=== PATIENT | female | born 1990 | race Two or more races ===

== ENCOUNTER 2025-01-06 08:56 | Inpatient (IN) | payer MEDICAID ==
[~2025-01-06] VITALS: Ht 172.7 cm; Wt 95.5 kg
[~2025-01-06 08:56] MED LIST: HYDR50TA69 PO; QUET200T45 PO; TRAZ-228 PO
[2025-01-06] MEDS: PREGABALIN CAPSULE 75 MG CAP ONE (10:50)
[2025-01-06] MEDS: CELECOXIB 100 MG CAP ONE (10:50)
[2025-01-06] MEDS: ACETAMINOPHEN IV 100 ML IV ONE (10:50)
[2025-01-06] MEDS ORDERED: KETOROLAC TROMETH 30 MG/ML 1ML VIAL ONE ×2 (11:47→14:36)
[2025-01-06] MEDS: ACETAMINOPHEN IV 1000 MG/100ML (10MG/ML) IV ONE (12:05)
[2025-01-06] MEDS: CELECOXIB 100 MG CAP PO ONE (12:05)
[2025-01-06] MEDS: PREGABALIN CAPSULE 75 MG CAP PO ONE (12:05)
[2025-01-06] MEDS: ceFAZolin 1GM/50ML 100 ML IV ONE (12:30)
[2025-01-06] MEDS ORDERED: MIDAZOLAM HCL 2MG/2ML 2ml VIAL (1mg/ml) ONE (12:30)
[2025-01-06] MEDS ORDERED: PROPOFOL 10 MG/ML 20 ML IV ONE (12:31)
[2025-01-06] MEDS ORDERED: fentaNYL CITRATE 100 MCG/2 ML VL ONE ×2 (12:32→14:52)
[2025-01-06] MEDS: CEFEPIME 1GM/ 50ML 50 ML IV ONE (12:40)
[2025-01-06] MEDS ORDERED: diphenhdrAMINE HCL 50 MG/1 ML VL ONE (12:45)
[2025-01-06] MEDS ORDERED: METOCLOPRAMIDE HCL 5MG/ml INJ 2ml VIAL ONE (12:45)
[2025-01-06] MEDS ORDERED: DexAMETHasone SOD PHOS 10MG/1ML VIAL INJ ONE (12:45)
[2025-01-06] MEDS ORDERED: ROCURONIUM 10MG/ML 10ML VIAL IV ONE (12:45)
[2025-01-06] MEDS ORDERED: HYDROmorphone HCL 2 MG/ML VL/or syr ONE (12:58)
[2025-01-06] MEDS: TRANEXAMIC ACID 20 ML ONE (12:59)
[2025-01-06] MEDS: BUPIVACAINE W/ EPINEPH 0.5% INJ 50ML MDV IJ ONE (13:17)
[2025-01-06] MEDS ORDERED: SUGAMMADEX 200mg/2ml Vial (100MG/ML) IV ONE (14:05)
[2025-01-06] MEDS ORDERED: ONDANSETRON HCL 4 MG/2 ML VIAL ONE (14:05)
[2025-01-06] MEDS ORDERED: ESMOLOL HCL 10 ML IV ONE (14:38)
[2025-01-06] MEDS: HYDROmorphone HCL 2 MG/ML VL/or syr ONE (15:26)
[2025-01-06] MEDS: HYDROmorphone HCL 2 MG/ML VL/or syr IV PRN (15:28)
[2025-01-06] MEDS ORDERED: HYDROmorphone HCL 2 MG/ML VL/or syr IV PRN ×3 (15:30→17:00)
[2025-01-06] MEDS: ONDANSETRON HCL 4 MG/2 ML VIAL IV ONE (15:30)
[2025-01-06] MEDS ORDERED: ONDANSETRON HCL 4 MG/2 ML VIAL IV PRN (17:00)
[2025-01-06] MEDS: LACTATED RINGER'S 1,000 ML IV SCH (17:00)
[2025-01-06] MEDS ORDERED: ACETAMINOPHEN 325 MG TAB PO PRN (17:00)
[2025-01-06 18:34] VITALS: PULSE 81; RESP 16; O2SAT 100
[2025-01-06] MEDS ORDERED: MORPHINE SULFATE INJ 2 MG/ml SYRG IV PRN (18:45)
[2025-01-06] MEDS ORDERED: NITROGLYCERIN 0.4 MG SL TAB SL PRN (18:45)
[2025-01-06] MEDS ORDERED: MULT-1018 PO (19:59)
[2025-01-06] MEDS ORDERED: SEMA0.25 SC (19:59)
[2025-01-06 20:00] VITALS: RESP 18; O2SAT 100
[2025-01-06 21:00] VITALS: BP 121/79; PULSE 93; RESP 18; TEMP 99.6; O2SAT 97
[2025-01-06] MEDS: ceFAZolin 1GM/50ML 50 ML IV SCH (21:55)
--- NOTE | 2025-01-06 22:00 | DVH ---
CLINICAL INDICATION: TOTAL HIP ARTHROPLASTY TECHNIQUE: XY R HIP COMPLETE XRAY Comparison: None FINDINGS / IMPRESSION: Right total hip arthroplasty in satisfactory position with no fracture or dislocation. Left hip joint appears unremarkable.
[2025-01-06] MEDS: DOCUSATE SOD 100 MG CAP PO SCH (22:04)
[2025-01-06] MEDS: OXYCODONE W/ ACETAMINOPHEN 5/325MG TABLET PO PRN (22:05)
[2025-01-07] VITALS (8 sets, daily range): BP systolic 102–121; BP diastolic 65–78; PULSE 78–103; RESP 16–20; TEMP 98.6–99.6; O2SAT 93–97
[2025-01-07] MEDS: OXYCODONE W/ ACETAMINOPHEN 5/325MG TABLET PO PRN (00:19)
[2025-01-07] MEDS: HYDROmorphone HCL 2 MG/ML VL/or syr IV PRN (05:00)
[2025-01-07 07:04] LABS: Hematocrit 28.4 % (36.0-46.0); Hemoglobin 9.9 g/dL (12.2-16.2)
--- NOTE | 2025-01-07 08:04 | DVHPN2 ---
Progress Note Date Seen: Jan 07, 2025 Medical Necessity Reason Pt with a Central, PICC or Fol: No Subjective Patient reports: No new complaints Objective vital signs Vital Sign Date Time Temp Pulse Resp B/P (MAP) Pulse Ox O2 Delivery O2 Flow Rate FiO2 01/07/25 05:30 79 18 115/71 01/07/25 05:00 98.6 95 98.6 01/06/25 20:00 Room Air* 0 21 Total Intake and Output 01/06/25 01/06/25 01/07/25 15:00 23:00 07:00 Intake Total 270 ml 50 ml 1850 ml Balance 270 ml 50 ml 1850 ml medications Current Medications Medications Dose Ordered Sig/James Route Start Time Stop Time Status Last Admin Dose Admin Lactated Ringer's 1,000 ml @ 100 mls/hr Q10H IV 01/06/25 17:00 01/07/25 03:05 100 MLS/HR Acetaminophen 650 mg Q6HP PRN PO 01/06/25 17:00 Oxycodone/ Acetaminophen 1 tab Q4HP PRN PO 01/06/25 17:00 01/07/25 06:43 1 TAB Ondansetron HCl 4 mg Q6HP PRN IV 01/06/25 17:00 Docusate Sodium 100 mg Q12HR PO 01/06/25 22:00 01/06/25 22:04 100 MG Enoxaparin Sodium 40 mg DAILY SC 01/07/25 10:00 Oxycodone/ Acetaminophen 2 tab Q4HP PRN PO 01/06/25 17:00 01/07/25 00:19 2 TAB Nitroglycerin 0.4 mg Q5MINP PRN SL 01/06/25 18:45 Morphine Sulfate 2 mg Q30M PRN IV 01/06/25 18:45 Hydromorphone HCl 1 mg Q2HP PRN IV 01/06/25 19:30 01/07/25 05:00 1 MG Examination: GENERAL:Normal, MSK:Abnormal laboratory and microbiology Laboratory Tests 01/07/25 05:57 Problem List/Assessment/Plan Problem List/Assessment/Plan 34 year old female who is s/p right hip hardware removal with conversion to right CARLIN POD ! 1. Pain control 2. toe touch weight bearing right lower extremity 3. physical therapy 4. DVT ppx Plan discussed with: Patient My Orders My Orders Orders - HARJINDER LOVE NP Procedure Category Date Status Time Patient Condition COMORDER 01/06/25 Transmitted Stable 16:58 Hemoglobin & LAB 01/08/25 Verified Hematocrit 07:00 Hemoglobin & LAB 01/09/25 Verified Hematocrit 07:00 Regular Diet DIET 01/06/25 Transmitted Lunch Vital Signs SAUL 01/06/25 In Process 16:58 Lactated Ringer's PHA 01/06/25 In Process 17:00 Acetaminophen Tablet PHA 01/06/25 In Process (Tylenol Tablet) 17:00 Oxycodone W/ Acet PHA 01/06/25 In Process 5/325mg Tab (Percocet 17:00 Ondansetron Hcl PHA 01/06/25 In Process (Zofran) 17:00 Docusate Sodium PHA 01/06/25 In Process Capsule (Colace 22:00 R Hip Complete Xray XY 01/06/25 Resulted 16:58 Call/Page SAUL 01/06/25 In Process Hospitalist/Atten Fo 16:58 Incentive Spirometry ORDERS 01/06/25 Transmitted 16:58 Enoxaparin Sodium PHA 01/07/25 In Process (Lovenox) 10:00 Oxycodone W/ Acet PHA 01/06/25 In Process /325mg Tab (Percocet 17:00 Weight-Bearing SAUL 01/06/25 In Process Restrictions 16:58 Admit ADMIT 01/06/25 Transmitted 18:41 * Hospitalist Consult CONS 01/06/25 Transmitted 18:41 Nitroglycerin PHA 01/06/25 In Process Sublingual (Ntrostat 18:45 Morphine Sulfate PHA 01/06/25 In Process Injection 18:45 Stat Ekg For Chest SAUL 01/06/25 In Process Pain 18:41 Notify Of Changes SAUL 01/06/25 In Process From Base 18:41 Last Chalker For SAUL 01/06/25 In Process 24 Hours 18:41 Emergency Dysrhythmia SAUL 01/06/25 In Process Protocol 18:41 Rhythm Strips Once SAUL 01/06/25 In Process Every Shift 18:41 Oxygen By Nasal RT 01/06/25 Transmitted Cannula 18:41 Hydromorphone PHA 01/06/25 In Process Injection (Dilaudid 19:30 Date of Service: Jan 07, 2025 Billing Provider: KYLEE DUMONT MD Common Visit Codes: NOT BILLABLE HARJINDER LOVE NP Jan 07, 2025 08:04
[2025-01-07] MEDS: ENOXAPARIN SOD 40 MG/0.4 ML SYRINGE SC SCH (09:40)
--- NOTE | 2025-01-07 20:33 | DVH ---
CLINICAL INDICATION: KNEE PAIN TECHNIQUE: XY R KNEE 2V XRAY Comparison: None FINDINGS / IMPRESSION: No evidence of joint effusion, fracture or dislocation. Mild medial joint space narrowing.
[2025-01-08] VITALS (8 sets, daily range): BP systolic 115–138; BP diastolic 69–85; PULSE 90–101; RESP 18–20; TEMP 98.5–98.8; O2SAT 94–100
[2025-01-08 06:30] LABS: Hematocrit 30.6 % (36.0-46.0); Hemoglobin 10.4 g/dL (12.2-16.2)
--- NOTE | 2025-01-08 07:28 | DVHPN2 ---
Progress Note Date Seen: Jan 08, 2025 Medical Necessity Reason Pt with a Central, PICC or Fol: No Subjective Patient reports: Feels worse (knee pain continues, patient reports that due to her history she does have a tolerance to narcotics and inquired on getting stronger pain medication) Review of Systems: HEENT:Normal Objective vital signs Vital Sign Date Time Temp Pulse Resp B/P (MAP) Pulse Ox O2 Delivery O2 Flow Rate FiO2 01/08/25 05:00 98.7 90 20 122/69 (86) 95 98.7 01/07/25 20:00 Room Air* 0 21 Total Intake and Output 01/07/25 01/07/25 01/08/25 14:59 22:59 06:59 Intake Total 700 ml 750 ml 400 ml Balance 700 ml 750 ml 400 ml medications Current Medications Medications Dose Ordered Sig/James Route Start Time Stop Time Status Last Admin Dose Admin Lactated Ringer's 1,000 ml @ 100 mls/hr Q10H IV 01/06/25 17:00 01/07/25 13:27 100 MLS/HR Acetaminophen 650 mg Q6HP PRN PO 01/06/25 17:00 Oxycodone/ Acetaminophen 1 tab Q4HP PRN PO 01/06/25 17:00 01/07/25 06:43 1 TAB Ondansetron HCl 4 mg Q6HP PRN IV 01/06/25 17:00 Docusate Sodium 100 mg Q12HR PO 01/06/25 22:00 01/07/25 22:50 100 MG Enoxaparin Sodium 40 mg DAILY SC 01/07/25 10:00 01/07/25 09:40 40 MG Oxycodone/ Acetaminophen 2 tab Q4HP PRN PO 01/06/25 17:00 01/08/25 06:37 2 TAB Nitroglycerin 0.4 mg Q5MINP PRN SL 01/06/25 18:45 Morphine Sulfate 2 mg Q30M PRN IV 01/06/25 18:45 Hydromorphone HCl 1 mg Q2HP PRN IV 01/06/25 19:30 01/08/25 03:27 1 MG Examination: GENERAL:Normal, MSK:Abnormal laboratory and microbiology Laboratory Tests 01/08/25 06:02 01/07/25 05:57 Problem List/Assessment/Plan Problem List/Assessment/Plan 34 year old female who is s/p right hip hardware removal with conversion to right CARLIN POD 2 1. Pain control 2. toe touch weight bearing right lower extremity 3. physical therapy 4. DVT ppx 5. d/c planning for home on 01/09/2025 with home health and in home physical therapy Plan discussed with: Patient Date of Service: Jan 08, 2025 Billing Provider: KYLEE DUMONT MD Common Visit Codes: NOT BILLABLE HARJINDER LOVE NP Jan 08, 2025 07:28
--- NOTE | 2025-01-08 15:58 | DVHINCON2 ---
Date Seen: Jan 08, 2025 Referring Physician Medical management. Reason for Consultation Medical management History of Present Illness 34-year-old female with a known history of right hip osteoarthritis presented to the hospital for elective procedure. Patient was status post right total hip arthroplasty. Patient was denies any medical history besides chronic insomnia and some anxiety disorder. Currently denies any fevers chills but does complaining of right knee pain and right hip pain. Past Medical History Chronic insomnia Right hip osteoarthritis Anxiety disorder Past Surgical History Right total hip arthroplasty. Family History: Patient reports no known family medical history. Allergies: Coded Allergies: Tramadol (Unverified Adverse Reaction, Intermediate, Nausea/Headache , 01/02/25) Home Meds Reported Medications Multiple Vitamin (Multivitamins) Tab, 1 TAB PO DAILY, #90 TAB 3 Refills 01/06/25 Semaglutide (Wegovy) 0.25 Mg/0.5 Ml Inj, 0.25 MG SC, INJ 01/06/25 Quetiapine Fumerate (QUETIAPINE FUMARATE) 200 Mg Tab, 200 MG PO for 30 Days, MG 01/02/25 Trazodone Hcl (Trazodone Hcl) 100 Mg Tab, 100 MG PO, MG 01/02/25 Hydroxyzine Hcl (Hydroxyzine Hcl) 50 Mg Tab, 50 MG PO for 30 Days, MG 01/02/25 Review of Systems Twelve review of system were negative except mentioned above. 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 1. Right hip osteoarthritis status post right total hip arthroplasty 2. Chronic insomnia 3. Anxiety disorder -continue pain meds, physical therapy evaluation and treatment -DVT prophylaxis. Plan discussed with: Patient Date of Service: Jan 08, 2025 Billing Provider: KATHY SHELTON MD Common Visit Codes: NOT BILLABLE KATHY SHELTON MD Jan 08, 2025 15:58
[2025-01-09] VITALS (8 sets, daily range): BP systolic 112–128; BP diastolic 69–79; PULSE 76–103; RESP 16–18; TEMP 97.7–98.6; O2SAT 90–100
--- NOTE | 2025-01-09 06:19 | DVHOP2 ---
Operative Report - 2 Report Details Date: 01/06/25 Preop Diagnosis: right hip post-traumatic avascular necrosis, failed screw hardware Postop Diagnosis: right hip post-traumatic avascular necrosis, failed screw hardware Surgeon: Jaqui MARCIAL/ Pool Dumont MD Street Light Inspector: Marcin PAEZ Anesthesiologist: Chel HAMMER Anesthesia: Regional Implant: See implant log Consent: The patient was informed of the risks and benefits of the procedure. These include but are not limited to complications of anesthesia, postoperative infection, incomplete relief of symptoms, recurrence of symptoms, damage to blood vessels, nerves and tendons, deep venous thrombosis, pulmonary embolism and possible need for repeat surgery in the future. Estimated Blood Loss: 300 cc Name of Procedure Performed Right total hip arthroplasty, hardware removal Procedure Details Procedure Details: FINDINGS: Extensive degenerative disease with grade IV changes INDICATION: This patient has failed non-operative treatments for hip arthritis and is now indicated for a total hip replacement. Preoperatively in the waiting area as well as in the office, I had a long discussion with the patient regarding the plan, the expected outcome, the risks, benefits, and alternatives of surgery. The risks include, but are not limited to, infection (which may require future surgery and removal of implants) , bleeding (which may require a transfusion), damage to nerves, arteries, veins, tendons, muscles and other adjacent structures. Also discussed the possibilities of dislocation, leg-length discrepancy, intraoperative fractures, implant loosening, heterotopic bone formation, and revision for variety of reasons, and medical complications etc. This was discussed at length and consent has been obtained. DESCRIPTION OF PROCEDURE: In the preoperative holding area, the consent was reviewed and the jennifer ropriate extremity was verified by the patient and marked with my initials. The patient was then transferred to the operating theatre. Appropriate anesthetia was induced. All bony prominences were well padded. A time out was performed verifying the side and site of surgery according to standard protocol. Preoperative antibiotics were given. Tranexamic acid was given. The patient was then placed in the lateral decubitus position and fixed with rigid pelvic fixation. All bony prominences were well padded and an axillary roll was placed. The affected hip area was then prepped and draped in the usual sterile fashion. We made a standard posterolateral incision sharply through the skin and carried our dissection down through subcutaneous tissue to the underlying fascia achieving hemostasis where necessary. We incised the fascia in line with our incision. We identified and protected the sciatic nerve. We took down the external rotators and hip capsule from their insertion into the greater trochanter, tagged them and retracted them posteriorly for further protection of the sciatic nerve. A check point was placed into the greater trochanter and the hip center and leg length length were registered. We then dislocated the femoral head, screws removed and performed an osteotomy of the femoral neck in accordance with our pre-operative plan. The labrum was excised with a long-handle knife, and we exposed the acetabular rim and cotyloid fossa. We then reamed up to our final size in accordance with the preoperative plan. We copiously irrigated and then impacted the final cup into position. We placed two acetabular dome screws into the posterior-superior quadrant in the usual fashion. We irrigated the cup and impacted the liner, checking to make sure it was well seated. Attention was then turned to the femur. We used a box osteotome followed by a canal finder to gain entry to the canal. Intramedullary contents were suctioned and care was taken to ensure they did not touch the tissues. We sequentially macey med until good cortical contact, then broached up to out final size. We trialed with the appropriate femoral neck and head and reduced the hip. The hip was taken through a full range of motion. The hip soft tissues were examined in extension and external rotation, the anterior capsule and IT band were palpated, and combined anteversion was determined to be 40 degrees. The hip was stable at maximum flexion, at 90 degrees of flexion and 45 degrees of internal rotation and the position of sleep. Leg lengths were restored as shown using the computer navigation, and the trial LTC matched preoperative and intraoperative templating. The hip was then dislocated and trial components removed. We copiously irrigated the wound and impacted the final femoral stem into position. The femoral head was impacted onto a clean and dry trunion and confirmed to be seated. The hip was reduced ensuring to tissues in the acetabular cup. We again brought it through a full functional range of motion and there was no evidence for dislocation, instability, or impingement. The checkpoint was removed. A dilute betadine solution (17.5mL in 500mL saline) was used to wash the joint and left to sit for 3 minutes. This was then irrigated out with copious amounts of pulse lavage. We sprinkled 1g vancomycin powder below the fascia and 1g above the fascia. We copiously irrigated the wound and soft tissues. The short e xternal rotators and capsule were repaired to the greater trochanter through drill holes, and the quadratus was repaired. We palpated the sciatic nerve in continuity without tension. The fascia was closed with vicryl and a barbed suture. We closed over the fascia with vicryl suture and re-approximated the skin with mono. A sterile dressing was placed. We returned the patient to the supine position. We verified all lower extremity compartments were soft and compressible and that we had intact distal pulses and checked our leg length restorationist. The patient was then transferred to the recovery room in stable condition. Condition Good Disposition Still a Patient POOL DUMONT MD Jan 09, 2025 06:19
[2025-01-09 07:12] LABS: Hemoglobin 10.3 g/dL (12.2-16.2)
--- NOTE | 2025-01-09 07:53 | DVHDS2 ---
Discharge Summary Date of Admission Jan 06, 2025 at 18:41 Date of Discharge: Jan 09, 2025 Wounds: If the wound is draining please change the gauze pad on the wound until it stops. If drainage persists past 10 days please notify our office. If there is a sticky gel dressing over your wound, you may leave this in place for as long as it is clean and dry. If it becomes loose or causes skin irritation, it is OK to remove it and place clean gauze over your wound. 1. You might notice some bruising around the surgical site, this is normal. 2. Check your temperature on a daily basis. Please note that a low-grade temp below 101 is not uncommon after surgery especially during the first 3 days. Notify the office if your temperature spikes above 101.5 after the 3rd post- operative date. 3. Many patients experience significant swelling in the thigh, this may extend below the knee and sometimes to the ankle. Swelling increases during the first week and subsides during the following week. 4. Provided you have been on a blood thinner since surgery and have been up and about at least three times per day, the risk of a blood clot is low and this swelling is an expected part of recovery. It will largely or completely resolve by your first post-operative visit. 5. Golden, if present, will be removed at 2 weeks during initial post-op visit. Labs/Diagnostic Data: Laboratory Results Test 01/09/25 06:28 01/07/25 05:57 Hemoglobin 10.3 g/dL (12.2-16.2) Hematocrit 31.0 % (36.0-46.0) Creatinine 0.71 mg/dL (0.550-1.02) Glomerular Filtration Rate Calc 116 mL/min (>90) Other Laboratory Tests 01/09/25 06:28 01/07/25 05:57 Brief Hx & Hospital Course: s/p removal of hip hardware with conversion to right total hip arthroplasty Condition at Discharge: Good Final Diagnosis/Problems List right hip post-traumatic avascular necrosis, failed screw hardware Discharge Disposition: Home with Health Services Discharge Instruct/Medications Diet: Regular Diet comment: may advance diet as tolerated, drink plenty of fluids, avoid alcohol while taking narcotics Activity: See Comment Activity comment: 1.You can bear as much weight as you tolerate on your hip unless specifically instructed otherwise. You may use the walking aid which you were discharged with and switch to a cane whenever you feel comfortable doing so. You should use an assistive device until you can walk comfortably without it. Keep in mind that every patient moves at their own speed of recovery so take your time. 2.A physical therapist will visit you at home. 3. Although guarantees against a dislocation do not exist, the hip was noted to be sufficiently stable in surgery. Below are motions that you should dischargenot do for 4-6 weeks, depending on the surgical approach used. If there are questions, please call the office. a.Bend forward past 90 degrees b.Sit on a regular low chair, couch, car seat etc... c.Cross your legs d.Use a regular low toilet seat. e.Sleep on your stomach or on either side. 3.High impact activity such as jumping, aerobics, tennis, and skiing are not permitted during the first 3 months after surgery. These activities can contribute to accelerated wear and should be done with caution after this time. Discuss this with your surgeon if you have questions. 4.Although a bath or whirlpool is NOT permitted during the first 2-3 weeks, you may shower as soon as you get home from the hospital provided you are able to keep your bandage clean and dry and there is no wound drainage. If you are unable to place a secured covering over your bandage bed bath/sponge bath may likely be the more appropriate option. 5.Swimming is not permitted until the wound is healed, which typically occurs approximately 3-4 weeks after surgery. Follow Up/Referral: 1.Driving is not permitted within the first 2 weeks. 2.Your first postoperative visit will take place 2weeks after discharge. Please call the office to arrange this appointment. 3.Antibiotic preventative treatment is required before dental or other invasive procedures. Please ask your surgeon about this at your first postoperative visit. Your hip replacement contains metal which may activate metal detectors. You may wish to carry a letter from your surgeon to communicate this to security personnel. If you experience chest pain, shortness of breath or severe painful calf swelling, go to the nearest emergency room to be evaluated. Please call our office once your situation is stabilized. Medications: 1.You will be discharged with pain medication, Aspirin as a blood thinner and sometimes an anti-inflammatory medication such as Celebrex or Mobic might be prescribed. Please follow the instructions regarding these medicines as provided by your nurse at the hospital. 2.Narcotic pain medication has side effects, including constipation. Please ensure you continue to take stool softeners (Colace, Senna) while taking your pain medication to help protect against constipation. Getting up and moving around at least a few times per day helps with this also. 3.Lovenox 40 Sq x 12 days followed by one regular strength 325 mg coated aspirin daily for 4 weeks after surgery. Then, take one baby aspirin, 81 mg daily for 6 weeks more. A major, yet preventable, complication of Orthopaedic Surgery is a blood clot (DVT). It is important not to miss any doses of this important medication. 4.You should restart all of your prescription medications once discharged unless specifically instructed otherwise. 5.Herbal supplements may be restarted 2 weeks after surgery. Discharge Statement: "Patient was advised to return to the ER or call 911 if any headaches, dizziness, shortness of breath, chest pain, abdominal pain, bleeding, fevers, or worsening of medical condition. Patient was counseled about treatment plan, medications, possible side effects, patientverbalized understanding. All questions were answered to the best of my ability. This discharge took greater then 30 minutes in planning, reviewing documentation, counseling the patient, and discussing with other team members." ASSESSMENT ASSESSMENT Assessment right hip post-traumatic avascular necrosis, failed screw hardware HARJINDER LOVE NP Jan 09, 2025 07:53
[2025-01-10] VITALS (8 sets, daily range): BP systolic 118–129; BP diastolic 78–86; PULSE 74–94; RESP 15–21; TEMP 98.1–99.6; O2SAT 95–100
--- NOTE | 2025-01-10 12:52 | DVHPN2 ---
Subjective Patient is complaining of minimal pain in the right hip. 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 motor deficit except right lower extremity can not be tested because of recent right hip surgery Medications Current Medications Medications Dose Ordered Sig/James Route Start Time Stop Time Status Last Admin Dose Admin Lactated Ringer's 1,000 ml @ 100 mls/hr Q10H IV 01/06/25 17:00 01/10/25 11:09 100 MLS/HR Acetaminophen 650 mg Q6HP PRN PO 01/06/25 17:00 Oxycodone/ Acetaminophen 1 tab Q4HP PRN PO 01/06/25 17:00 01/07/25 06:43 1 TAB Ondansetron HCl 4 mg Q6HP PRN IV 01/06/25 17:00 Docusate Sodium 100 mg Q12HR PO 01/06/25 22:00 01/10/25 08:46 100 MG Enoxaparin Sodium 40 mg DAILY SC 01/07/25 10:00 01/10/25 08:47 40 MG Oxycodone/ Acetaminophen 2 tab Q4HP PRN PO 01/06/25 17:00 01/10/25 11:08 2 TAB Nitroglycerin 0.4 mg Q5MINP PRN SL 01/06/25 18:45 Morphine Sulfate 2 mg Q30M PRN IV 01/06/25 18:45 Hydromorphone HCl 1 mg Q2HP PRN IV 01/06/25 19:30 01/10/25 08:50 1 MG Laboratory Results Laboratory Tests 01/07/25 05:57 01/09/25 06:28 Assessment/Plan Assessment/Plan 34-year-old female with a known history of chronic insomnia, anxiety disorder, right hip osteoarthritis presented to the hospital for elective procedure. 1. Right hip osteoarthritis status post right total hip arthroplasty 2. Chronic insomnia 3. Anxiety disorder -continue pain meds, physical therapy evaluation and treatment -renal social worker consultation for in-house home health support and home physical therapy if indicated Plan discussed with: Patient Date of Service: Jan 09, 2025 Billing Provider: KATHY SHELTON MD Common Visit Codes: NOT BILLABLE KATHY SHELTON MD Jan 10, 2025 12:52
--- NOTE | 2025-01-10 12:53 | DVHPN2 ---
Subjective Patient is complaining of minimal pain in the right hip. Changes from previous H/P or p: No Changes Objective Vitals Vital Signs Date Time Temp Pulse Resp B/P (MAP) Pulse Ox O2 Delivery O2 Flow Rate FiO2 01/10/25 10:03 98.3 86 18 120/78 (92) 97 98.3 01/10/25 08:00 Room Air* 0 21 Intake/Output Intake and Output 01/10/25 07:00 Intake Total 600 ml Balance 600 ml Intake Oral 600 ml # Voids 14 Exam HEENT pupils are reactive Neck is supple CV is S1-S2 regular rate and rhythm Respiratory diminished breath sounds bilateral bases GI positive bowel sound Extremity no edema [employer] no motor deficit except right lower extremity can not be tested because of recent right hip surgery Medications Current Medications Medications Dose Ordered Sig/James Route Start Time Stop Time Status Last Admin Dose Admin Lactated Ringer's 1,000 ml @ 100 mls/hr Q10H IV 01/06/25 17:00 01/10/25 11:09 100 MLS/HR Acetaminophen 650 mg Q6HP PRN PO 01/06/25 17:00 Oxycodone/ Acetaminophen 1 tab Q4HP PRN PO 01/06/25 17:00 01/07/25 06:43 1 TAB Ondansetron HCl 4 mg Q6HP PRN IV 01/06/25 17:00 Docusate Sodium 100 mg Q12HR PO 01/06/25 22:00 01/10/25 08:46 100 MG Enoxaparin Sodium 40 mg DAILY SC 01/07/25 10:00 01/10/25 08:47 40 MG Oxycodone/ Acetaminophen 2 tab Q4HP PRN PO 01/06/25 17:00 01/10/25 11:08 2 TAB Nitroglycerin 0.4 mg Q5MINP PRN SL 01/06/25 18:45 Morphine Sulfate 2 mg Q30M PRN IV 01/06/25 18:45 Hydromorphone HCl 1 mg Q2HP PRN IV 01/06/25 19:30 01/10/25 08:50 1 MG Laboratory Results Laboratory Tests 01/07/25 05:57 01/09/25 06:28 Assessment/Plan Assessment/Plan 34-year-old female with a known history of chronic insomnia, anxiety disorder, right hip osteoarthritis presented to the hospital for elective procedure. 1. Right hip osteoarthritis status post right total hip arthroplasty 2. Chronic insomnia 3. Anxiety disorder -continue pain meds, physical therapy evaluation and treatment -social director consultation for in-house home health support and home physical therapy if indicated -plan of care discussed with the bedside RN [place], final disposition per Orthopedics. Plan discussed with: Patient Date of Service: Jan 10, 2025 Billing Provider: KATHY SHELTON MD Common Visit Codes: NOT BILLABLE KATHY SHELTON MD Jan 10, 2025 12:53
[2025-01-11 01:00] VITALS: BP 119/80; PULSE 77; RESP 15; TEMP 98.2; O2SAT 96
[2025-01-11 05:00] VITALS: BP 117/75; PULSE 92; RESP 15; TEMP 98.1; O2SAT 97
[2025-01-11 08:00] VITALS: PULSE 81; RESP 19; O2SAT 96
[2025-01-11 09:20] VITALS: BP 120/77; PULSE 81; RESP 19; TEMP 98.4; O2SAT 96
[2025-01-11 13:00] VITALS: BP 120/74; PULSE 94; RESP 20; TEMP 99; O2SAT 98
[2025-01-11 15:00] VITALS: BP 120/77; PULSE 81; RESP 19; TEMP 98.4; O2SAT 96
== END 2025-01-11 15:31 | disposition home health service (06) | DRG 324 ==
LOC: SUR 08:56 → OVERFLOW 18:41 → EAST 19:25
PROVIDERS: ADMIT Hospitalist; ATTEND Hospitalist
PROC: 0SP904Z Removal of Internal Fixation Device from Right Hip Joint, Open Approach (ICD-10-PCS; 2025-01-06)
PROC: 0SR90JZ Replacement of Right Hip Joint with Synthetic Substitute, Open Approach (ICD-10-PCS; principal; 2025-01-06 12:28)
DX: M16.11 Unilateral primary osteoarthritis, right hip (principal); M87.251 Osteonecrosis due to previous trauma, right femur; F41.9 Anxiety disorder, unspecified; F51.04 Psychophysiologic insomnia; Z79.899 Other long term (current) drug therapy
CPT/HCPCS: 36415; 73502; 73560; 82565; 85014; 85018; 86850; 86900; 86901; 97110; 97116; 97163; 97530; G0378; J0131; J1100; J1885; J2250; J2405; J2704